=== PATIENT | female | born 1950 | race African-American/Black ===

== ENCOUNTER → 2019-03-12 | Day surgery (SDC) | payer MEDICARE ==
[~2019-03-12] MED LIST: FENTANYL CITRATE/PF 100MCG/2 ML INJ ONE; JANUMET 50-1,01 EACH PO; LINZESS PO; MIDAZOLAM HCL 2 MG/2 ML VIAL ONE; OR PHACO EYE KIT ONE; PREOP PHACO EYE KIT ONE; TOBRAMYCIN/DEXAMETHASONE(OPTH) 3.5 GM TUBE ONE; TRIBENZOR 40-51 EACH PO
--- OUTSIDE RECORDS SUMMARY | 2019-03-12 09:28 | XMS REPORT | CCD ---
Author Author Auto Generated Organization [facility] Address Unknown Phone Unavailable Care Team Providers Care Ash Kier Boiler Name Role Phone [facility] CP Unavailable Jessica Clay CP Unavailable Jay Marcos CP Vanessa Guardado CP [phone] Jaswinder Meehan CP Tonia Crenshaw CP [phone] Anand Sanchez CP Unavailable Shawnee Garcia CP Unavailable Virginia Haas CP [phone] Loc Sanders CP Unavailable Radu Muse CP Unavailable Carolina Fry CP [phone] Venecia Le CP Asiya Gallardo CP Unavailable La Cotto CP Unavailable Candice Stringer CP Unavailable Ronald Griffin CP Unavailable Jl Gamez CP [phone] Casi Santacruz CP Unavailable Ayala Atkinson CP Feliciano Pierre CP Unavailable Jocelyn Vyas CP Unavailable Inés Jalloh CP Unavailable DominickEsteban alvarado CP Unavailable SYSTEM, SYSTEM CP Unavailable Kylah Boss CP Unavailable Biju Cotto CP [phone] Chris Jones CP Unavailable Jose Carlos Faustin CP Unavailable Sarah Beth Yi CP [phone] Tino Pozo CP Brittany Garcia CP [phone] [place], Karen CP Unavailable Geeta Stein CP Unavailable NairAlecia shields CP [phone] Allergies, Adverse Reactions, Alerts Substance Reaction Status NKDA ?? Active Problem List Condition Effective Dates Status Hypertension ?? Active Medications Medication Instructions Start Date End Date Status morphine Sulfate 2 mg, Route: IVP, ONCE, Priority: 05/01/2011 05/01/2011 Completed STAT, Start date: 05/01/11 21:56:00, Stop date: 05/01/11 21:56:00 Flexeril 5 mg, 0.5 tab, Route: PO, Drug 05/01/2011 05/01/2011 Completed form: TAB, ONCE, PRN Spasm, Start date: 05/01/11 21:56:00, Stop date: 05/31/11 21:55:00 hydrALAZINE 10 mg, 0.5 mL, Route: IVP, Drug 05/01/2011 05/01/2011 Completed form: INJ, ONCE, Priority: STAT, Start date: 05/01/11 23:07:00, Stop date: 05/01/11 23:07:00 clonidine 0.2 mg 0.2 mg, 1 tab, PO, Q12H, 60 tab, 05/03/2011 ?? Ordered oral tablet Substitution Allowed, TAB baclofen 10 mg oral 10 mg, 1 tab, PO, TID, 30 tab, 05/03/2011 ?? Ordered tablet Substitution Allowed, TAB metoprolol 50 mg, 1 tab, Route: PO, Drug form: 05/02/2011 05/03/2011 Discontinued ERTAB, BID, Start date: 05/02/11 17:00:00, Duration: 30 day, Stop date: 06/01/11 9:00:00 glimepiride 2 mg, 1 tab, Route: PO, Drug form: 05/02/2011 05/03/2011 Discontinued TAB, BID, Start date: 05/02/11 17:00:00, Duration: 30 day, Stop date: 06/01/11 9:00:00 Lipitor 40 mg, 1 tab, Route: PO, Drug form: 05/02/2011 05/03/2011 Discontinued TAB, Bedtime, Start date: 05/02/11 21:00:00, Duration: 30 day, Stop date: 05/31/11 21:00:00 aspirin 81 mg 81 mg, 1 tab, Route: PO, Drug form: 05/02/2011 05/03/2011 Discontinued tablet, chewable CHEWTAB, Q24H, Start date: 05/02/11 15:00:00, Duration: 30 day, Stop date: 05/31/11 15:00:00 labetalol 20 mg, 4 mL, Route: IVP, Drug form: 05/02/2011 05/03/2011 Discontinued INJ, ONCE, PRN Elevated BP, Start date: 05/02/11 1:53:00, SBP GREATER THAN 200 atropine 0.5 mg, 5 mL, Route: IVP, Drug 05/02/2011 05/03/2011 Discontinued form: INJ, PRN, PRN Bradycardia, Start date: 05/02/11 1:41:00, Duration: 30 day, Stop date: 06/01/11 1:40:00 nitroglycerin 0.4 mg 0.4 mg, 1 tab, Route: SL, Drug 05/02/2011 05/03/2011 Discontinued sublingual tablet form: TAB, Q5Min, PRN Chest Pain, Start date: 05/02/11 1:41:00, Duration: 30 day, Stop date: 06/01/11 1:40:00 Milk of Magnesia 30 ml, Route: PO, Drug Form: SUSP, 05/02/2011 05/02/2011 Completed ONCE, Start date: 05/02/11 13:45:00, Stop date: 05/02/11 13:45:00 Flexeril 5 mg, 0.5 tab, Route: PO, Drug 05/02/2011 05/03/2011 Discontinued form: TAB, TID, PRN Spasm, Start date: 05/02/11 1:53:00, Duration: 30 day, Stop date: 06/01/11 1:52:00 morphine Sulfate 2 mg, 1 mL, Route: IVP, Drug form: 05/02/2011 05/03/2011 Discontinued INJ, Q4H, Priority: STAT, Start date: 05/02/11 1:53:00, Duration: 30 day, Stop date: 06/01/11 0:00:00 clonidine 0.2 mg 0.2 mg, 1 tab, Route: PO, BID, 05/02/2011 05/02/2011 Deleted oral tablet Start date: 05/02/11 9:00:00, Duration: 30 day, Stop date: 05/31/11 17:00:00 aspirin 81 mg Daily, Substitution Allowed 05/01/2011 ?? Ordered tablet, chewable meloxicam 15 mg oral Daily, Substitution Allowed 05/01/2011 ?? Ordered tablet Dextrose 50% Syringe 12.5 gm, 25 mL, Route: IVP, Drug 05/02/2011 05/03/2011 Discontinued Form: INJ, PRN, PRN Blood Glucose Results, Start date: 05/02/11 13:42:00, Duration: 30 day, Stop date: 06/01/11 13:41:00 Dextrose 50% Syringe 25 gm, 50 mL, Route: IVP, Drug 05/02/2011 05/03/2011 Discontinued Form: INJ, PRN, PRN Blood Glucose Results, Start date: 05/02/11 13:42:00, Duration: 30 day, Stop date: 06/01/11 13:41:00 glucagon 1 mg, Route: IM, Drug form: 05/02/2011 05/03/2011 Discontinued PDR/INJ, PRN, PRN Blood Glucose Results, Start date: 05/02/11 13:42:00, Duration: 30 day, Stop date: 06/01/11 13:41:00 insulin aspart 1 unit, 0.01 mL, Route: SUB-Q, Drug 05/02/2011 05/03/2011 Discontinued form: SOLN, Bedtime, PRN Blood Glucose Results, Start date: 05/02/11 13:42:00, Duration: 30 day, Stop date: 06/01/11 13:41:00 insulin aspart 2 unit, 0.02 mL, Route: SUB-Q, Drug 05/02/2011 05/03/2011 Discontinued form: SOLN, Bedtime, PRN Blood Glucose Results, Start date: 05/02/11 13:42:00, Duration: 30 day, Stop date: 06/01/11 13:41:00 insulin aspart 3 unit, 0.03 mL, Route: SUB-Q, Drug 05/02/2011 05/03/2011 Discontinued form: SOLN, Bedtime, PRN Blood Glucose Results, Start date: 05/02/11 13:42:00, Duration: 30 day, Stop date: 06/01/11 13:41:00 insulin aspart 4 unit, 0.04 mL, Route: SUB-Q, Drug 05/02/2011 05/03/2011 Discontinued form: SOLN, Bedtime, PRN Blood Glucose Results, Start date: 05/02/11 13:42:00, Duration: 30 day, Stop date: 06/01/11 13:41:00 insulin aspart 6 unit, 0.06 mL, Route: SUB-Q, Drug 05/02/2011 05/03/2011 Discontinued form: SOLN, TID-Before Meals, PRN Blood Glucose Results, Start date: 05/02/11 13:42:00, Duration: 30 day, Stop date: 06/01/11 13:41:00 insulin aspart 9 unit, 0.09 mL, Route: SUB-Q, Drug 05/02/2011 05/03/2011 Discontinued form: SOLN, TID-Before Meals, PRN Blood Glucose Results, Start date: 05/02/11 13:42:00, Duration: 30 day, Stop date: 06/01/11 13:41:00 insulin aspart 12 unit, 0.12 mL, Route: SUB-Q, 05/02/2011 05/03/2011 Discontinued Drug form: SOLN, TID-Before Meals, PRN Blood Glucose Results, Start date: 05/02/11 13:42:00, Duration: 30 day, Stop date: 06/01/11 13:41:00 insulin aspart 15 unit, 0.15 mL, Route: SUB-Q, 05/02/2011 05/03/2011 Discontinued Drug form: SOLN, TID-Before Meals, PRN Blood Glucose Results, Start date: 05/02/11 13:42:00, Duration: 30 day, Stop date: 06/01/11 13:41:00 insulin aspart 3 unit, 0.03 mL, Route: SUB-Q, Drug 05/02/2011 05/03/2011 Discontinued form: SOLN, TID-Before Meals, PRN Blood Glucose Results, Start date: 05/02/11 13:42:00, Duration: 30 day, Stop date: 06/01/11 13:41:00 baclofen 10 mg, 1 tab, Route: PO, Drug form: 05/02/2011 05/03/2011 Discontinued TAB, TID, Start date: 05/02/11 17:00:00, Duration: 30 day, Stop date: 06/01/11 13:00:00 Lipitor 40 mg oral Bedtime, Substitution Allowed 05/01/2011 05/02/2011 Discontinued tablet Mobic 7.5 mg, 1 tab, Route: PO, Drug 05/03/2011 05/03/2011 Discontinued form: TAB, Daily, Start date: 05/03/11 9:00:00, Duration: 30 day, Stop date: 06/01/11 9:00:00 pneumococcal 0.5 ml, Route: IM, Drug Form: INJ, 05/02/2011 05/02/2011 Completed 23-valent vaccine Start date: 05/02/11 9:00:00, Stop date: 05/02/11 9:00:00 influenza virus 0.5 mL, Route: IM, Drug Form: INJ, 05/02/2011 05/03/2011 Completed vaccine, inactivated Start date: 05/02/11 9:00:00, Stop date: 05/02/11 9:00:00 metoprolol 50 mg 25 mg, 0.5 tab, BID, Substitution 05/01/2011 ?? Ordered oral tablet, Allowed extended release pneumococcal 0.5 ml, Route: IM, Drug Form: INJ, 05/02/2011 05/02/2011 Completed 23-valent vaccine Daily, Start date: 05/02/11 9:00:00, Duration: 1 doses or times, Stop date: 05/02/11 9:00:00 influenza virus 0.5 mL, Route: IM, Drug Form: INJ, 05/02/2011 05/02/2011 Completed vaccine, inactivated Daily, Start date: 05/02/11 9:00:00, Duration: 1 doses or times, Stop date: 05/02/11 9:00:00 labetalol 20 mg, 4 mL, Route: IVP, Drug form: 05/01/2011 05/01/2011 Completed INJ, ONCE, Priority: STAT, Start date: 05/01/11 21:33:00, Stop date: 05/01/11 21:33:00 glimepiride 2 mg BID, Substitution Allowed 05/01/2011 ?? Ordered oral tablet clonidine 0.2 mg 0.2 mg, 1 tab, Route: PO, Drug 05/02/2011 05/03/2011 Discontinued oral tablet form: TAB, Q12H, Start date: 05/02/11 9:00:00, Duration: 30 day, Stop date: 05/31/11 21:00:00 nitroglycerin 0.4 mg, 1 tab, Route: SL, Drug 05/01/2011 05/03/2011 Discontinued form: TAB, Q5Min, PRN Chest Pain, (Hold if SBP <=90 mmHg or if <=100mmHg with symptomatic dizziness), Start date: 05/01/11 21:33:00, Duration: 3 doses or times, Stop date: Limited # of times nitroglycerin 2% 0.5 inch, Route: TOP, Drug Form: 05/01/2011 05/01/2011 Completed ointment OINT, ONCE, STAT, Start date: 05/01/11 21:33:00, Stop date: 05/01/11 21:33:00 aspirin 325 mg 325 mg, 1 tab, Route: PO, Drug 05/01/2011 05/01/2011 Completed tablet form: TAB, ONCE, Priority: STAT, Start date: 05/01/11 21:33:00, Stop date: 05/01/11 21:33:00 Saline Flush 0.9% 5 ml, Route: IVP, Drug Form: INJ, 05/01/2011 05/02/2011 Discontinued PRN, PRN Line Flush, Start date: 05/01/11 21:33:00, Duration: 24 hr, Stop date: 05/02/11 21:32:00 Immunizations Vaccine Date Status influenza virus vaccine, inactivated 05/03/2011 Not Done influenza virus vaccine, inactivated 05/03/2011 Auth (Verified) pneumococcal 23-valent vaccine 05/02/2011 Not Done Vital Signs Most recent to oldest [Reference Range]: 1 2 3 Height 157.48 cm (05/01/2011 20:30:00) ? Temperature Oral [96.4-99.1 DegF] 98.1 DegF (05/03/2011 08:00:00) ?? 98.4 DegF (05/03/2011 04:00:00) ?? 97.4 DegF (05/03/2011 00:00:00) ?? Systolic Blood Pressure [90-140 mmHg] 155 mmHg *HI* (05/03/2011 08:00:00) ?? 130 mmHg (05/03/2011 04:00:00) ?? 147 mmHg *HI* (05/03/2011 00:00:00) ?? Diastolic Blood Pressure [60-90 mmHg] 87 mmHg (05/03/2011 08:00:00) ?? 81 mmHg (05/03/2011 04:00:00) ?? 84 mmHg (05/03/2011 00:00:00) ?? Respiratory Rate [14-20 BRMIN] 18 BRMIN (05/03/2011 08:00:00) ?? 16 BRMIN (05/03/2011 04:00:00) ?? 16 BRMIN (05/03/2011 00:00:00) ?? Peripheral Pulse Rate [60-100 bpm] 63 bpm (05/03/2011 08:00:00) ?? 64 bpm (05/03/2011 04:00:00) ?? 70 bpm (05/03/2011 00:00:00) ?? Weight 100.000 kg (05/01/2011 20:30:00) ? Results BEDSIDE GLUCOSE TESTING Most recent to [Reference Range]: 1 2 3 Gluc POC [place] [65-110 mg/dL] 118 mg/dL 1 *HI* (05/03/2011 07:14:00) ?? 144 mg/dL 2 *HI* (05/02/2011 20:50:00) ?? 151 mg/dL 3 *HI* (05/02/2011 17:01:00) ?? Comment1 Notify RN/MD *NA* (05/02/2011 20:50:00) ?? Notify RN/MD *NA* (05/02/2011 17:01:00) ?? Notify RN/MD *NA* (05/02/2011 12:21:00) ?? 1Interpretive Data: Upper Reportable Limit: 200 mg/dL. 2Interpretive Data: Upper Reportable Limit: 200 mg/dL. 3Interpretive Data: Upper Reportable Limit: 200 mg/dL. CHEMISTRY Most recent to oldest [Reference Range]: 1 2 3 Sodium Lvl [135-145 mEq/L] 143 mEq/L (05/01/2011 22:05:00) ? Potassium Lvl [3.5-5.1 mEq/L] 3.8 mEq/L (05/01/2011 22:05:00) ? Chloride Lvl [95-109 mEq/L] 106 mEq/L (05/01/2011 22:05:00) ? CO2 [24-32 mEq/L] 28 mEq/L (05/01/2011 22:05:00) ? AGAP [10.0-20.0 mEq/L] 12.8 mEq/L (05/01/2011 22:05:00) ? Creatinine Lvl [0.5-1.4 mg/dL] 1.1 mg/dL (05/01/2011 22:05:00) ? BUN [7-22 mg/dL] 9 mg/dL (05/01/2011 22:05:00) ? B/C Ratio [6-25] 8 (05/01/2011 22:05:00) ? Glucose Lvl 96 mg/dL 4 *NA* (05/01/2011 22:05:00) ? Total Protein [6.4-8.4 g/dL] 8.5 g/dL *HI* (05/01/2011 22:05:00) ? Albumin Lvl [3.5-5.0 g/dL] 3.9 g/dL (05/01/2011 22:05:00) ? Globulin [2.0-4.0 g/dL] 4.6 g/dL *HI* (05/01/2011 22:05:00) ? A/G Ratio [0.7-1.6] 0.8 (05/01/2011 22:05:00) ? Calcium Lvl [8.5-10.5 mg/dL] 9.6 mg/dL (05/01/2011 22:05:00) ? ALT [0-65 U/L] 27 U/L (05/01/2011 22:05:00) ? AST [0-37 U/L] 13 U/L (05/01/2011 22:05:00) ? Alk Phos [39-136 U/L] 80 U/L (05/01/2011 22:05:00) ? Bili Total [0.2-1.3 mg/dL] 0.4 mg/dL (05/01/2011 22:05:00) ? Total CK [12-191 U/L] 106 U/L (05/02/2011 10:45:00) ?? 116 U/L (05/02/2011 03:59:00) ?? 147 U/L (05/01/2011 22:05:00) ?? CK MB [0.5-3.6 ng/mL] 1.5 ng/mL (05/01/2011 22:05:00) ? CK MB Index [0.0-2.5] 1.0 (05/01/2011 22:05:00) ? Troponin-I [0.00-0.40 ng/mL] <0.02 ng/mL (05/02/2011 10:45:00) ?? <0.02 ng/mL (05/02/2011 03:59:00) ?? <0.02 ng/mL (05/01/2011 22:05:00) ?? 4Interpretive Data: Reference Ranges : 0 - 7 days : 41 - 90 mg/dL7 days - 150 yrs : 70 - 99 mg/dL (fasting), based on the clinical recommendations of the [place] [employer]. HEMATOLOGY Most recent to oldest [Reference Range]: 1 2 3 WBC [3.7-10.4 K/CMM] 7.0 K/CMM (05/01/2011 22:05:00) ? RBC [4.20-5.40 M/CMM] 4.85 M/CMM (05/01/2011 22:05:00) ? Hgb [12.0-16.0 g/dL] 14.6 g/dL (05/01/2011 22:05:00) ? Hct [36.0-48.0 %] 42.7 % (05/01/2011 22:05:00) ? MCV [81.0-99.0 fL] 87.9 fL (05/01/2011 22:05:00) ? MCH [27.0-31.0 pg] 30.1 pg (05/01/2011 22:05:00) ? MCHC [32.0-36.0 g/dL] 34.2 g/dL (05/01/2011 22:05:00) ? RDW [11.5-14.5 %] 13.0 % (05/01/2011 22:05:00) ? Platelet [133-450 K/CMM] 230 K/CMM (05/01/2011 22:05:00) ? MPV [7.4-10.4 fL] 8.3 fL (05/01/2011 22:05:00) ? Segs [45.0-75.0 %] 54.2 % (05/01/2011 22:05:00) ? Lymphocytes [20.0-40.0 %] 37.3 % (05/01/2011 22:05:00) ? Monocytes [2.0-12.0 %] 7.3 % (05/01/2011 22:05:00) ? Eosinophils [0.0-4.0 %] 0.8 % (05/01/2011 22:05:00) ? Basophils [0.0-1.0 %] 0.4 % (05/01/2011 22:05:00) ? Segs-Bands # [1.5-8.1 K/CMM] 3.8 K/CMM (05/01/2011 22:05:00) ? Lymphocytes # [1.0-5.5 K/CMM] 2.6 K/CMM (05/01/2011 22:05:00) ? Monocytes # [0.0-0.8 K/CMM] 0.5 K/CMM (05/01/2011 22:05:00) ? Eosinophils # [0.0-0.5 K/CMM] 0.1 K/CMM (05/01/2011 22:05:00) ? Basophils # [0.0-0.2 K/CMM] 0.0 K/CMM (05/01/2011 22:05:00) ?
--- OUTSIDE RECORDS SUMMARY | 2019-03-12 09:28 | XMS REPORT | Summary of Care ---
Author Organization Unknown Address Unknown Phone Unavailable Encounter HQ Cinthia_romario(ELISE) [id number] Date(s): 10/02/13 - 10/02/13 [facility] [address] [place], [place] [address] - [facility] Discharge Disposition: Home Physician Attending: Adriane Cunningham Physician Admitting: Adriane Cunningham Physician_Referring: Adriane Cunningham Reason for Visit V76.51 Vital Signs 1 2 3 Most recent to oldest [Reference Range]: 154.94 cm (09/27/13 11:31 AM) Height 98.6 DegF (09/27/13 11:46 AM) Temperature Oral [96.4-99.1 DegF] 127 mmHg (10/02/13 3:15 PM) 119 mmHg (10/02/13 3:00 PM) 92 mmHg (10/02/13 2:42 PM) Systolic Blood Pressure [90-140 mmHg] 68 mmHg (10/02/13 3:15 PM) 54 mmHg *LOW* (10/02/13 3:00 PM) 45 mmHg *LOW* (10/02/13 2:42 PM) Diastolic Blood Pressure [60-90 mmHg] 18 BRMIN (10/02/13 3:15 PM) 18 BRMIN (10/02/13 3:00 PM) 18 BRMIN (10/02/13 2:42 PM) Respiratory Rate [14-20 BRMIN] 77 bpm (09/27/13 11:46 AM) Peripheral Pulse Rate [60-100 bpm] 93.182 kg (09/27/13 11:31 AM) Weight 38.82 m2 (09/27/13 11:31 AM) Body Mass Index Problem List Condition Effective Dates Status Health Status Informant Diabetes Active mellitus(Confirmed) Hemorrhoids(Confirme Active d)1 Hypercholesterolemia Active (Confirmed) Hypertension(Confirm Active Chronic ; ed) SOB (shortness of Resolved breath)(Confirmed)2 1with bleeding 2occasionally-checked my Cardiac MD-wnl Allergies, Adverse Reactions, Alerts Substance Reaction Severity Status NKDA Active Medications chondroitin PO, Daily, 0 Refill(s) Start Date: 09/27/13 Status: Ordered flumazenil 0.2 mg, Route: IVP, PRN, Dosing Weight 93.182, kg, PRN Other -See Comment, Start date: 10/02/13 14:57:00, Duration: 1 doses or times, Stop date: Limited # of ti mes Start Date: 10/02/13 Stop Date: 10/02/13 Status: Discontinued flumazenil 0.1 mg, Route: IVP, Q5Min, Dosing Weight 93.182, kg, PRN Other -See Comment, Sta rt date: 10/02/13 14:57:00, Duration: 30 day, Stop date: 11/01/13 14:56:00 Start Date: 10/02/13 Stop Date: 10/02/13 Status: Discontinued hydrocortisone-pramoxine topical 1%-1% cream with applicator 1 appl, VA, Daily, # 10 gm, 0 Refill(s) Start Date: 09/27/13 Status: Ordered metFORMIN 1000 mg oral tablet 1,000 mg=1 tab, PO, BID, # 60 tab, 0 Refill(s) Start Date: 09/27/13 Status: Ordered metFORMIN 500 mg oral tablet 500 mg=1 tab, PO, BID, # 30 tab, 0 Refill(s) Start Date: 09/27/13 Stop Date: 09/27/13 Status: Completed metoprolol tartrate 100 mg oral tablet 100 mg=1 tab, PO, Daily, # 180 tab, 0 Refill(s) Start Date: 09/27/13 Status: Ordered multivitamin PO, Daily, 0 Refill(s) Start Date: 09/27/13 Status: Ordered naloxone 0.1 mg, Route: IVP, Q2MIN, Dosing Weight 93.182, kg, PRN Narcotic Reversal, Star t date: 10/02/13 14:57:00, Duration: 4 doses or times, Stop date: Limited # of t imes Start Date: 10/02/13 Stop Date: 10/02/13 Status: Discontinued Sodium Chloride 0.9% IV 1000 mL 1,000 mL, Rate: 25 ml/hr, Infuse over: 40 hr, Route: IV, Dosing Weight 93.182 kg , Total Volume: 1,000, Start date: 10/02/13 13:34:00, Duration: 30 day, Stop ramona e: 11/01/13 13:33:00 Start Date: 10/02/13 Stop Date: 10/02/13 Status: Discontinued Tribenzor 40 mg-10 mg-25 mg oral tablet PO, Daily, 0 Refill(s) Start Date: 09/27/13 Status: Ordered Results ELECTROLYTES Most recent to 1 oldest [Reference Range]: Sodium Lvl [135-145 138 mEq/L mEq/L] (09/27/13 12:00 PM) Potassium Lvl 4.5 mEq/L [3.5-5.1 mEq/L] (09/27/13 12:00 PM) Chloride Lvl [95-109 100 mEq/L mEq/L] (09/27/13 12:00 PM) CO2 [24-32 mEq/L] 31 mEq/L (09/27/13 12:00 PM) AGAP [10.0-20.0 11.5 mEq/L mEq/L] (09/27/13 12:00 PM) CHEM PANEL Most recent to 1 oldest [Reference Range]: Creatinine Lvl 1.2 mg/dL [0.5-1.4 mg/dL] (09/27/13 12:00 PM) eGFR 56 mL/min/1.73m2 1 *NA* (09/27/13 12:00 PM) BUN [7-22 mg/dL] 16 mg/dL (09/27/13 12:00 PM) Glucose Lvl [70-99 128 mg/dL 2 mg/dL] *HI* (09/27/13 12:00 PM) Calcium Lvl 9.9 mg/dL [8.5-10.5 mg/dL] (09/27/13 12:00 PM) 1Result Comment: The eGFR is calculated using the CKD-EPI formula. In most young, healthy individuals the eGFR will be >90 mL/min/1.73m2. The eGFR declines with age. An eGFR of 60-89 may be normal in some populations, particularly the elderly, for whom the CKD-EPI formula has not been extensively validated. Use of the eGFR is not recommended in the following populations: Individuals with unstable creatinine concentrations, including patients and those with serious co-morbid conditions. Patients with extremes in muscle mass or diet. The data above are obtained from the National Kidney Disease Education Program ( NKDEP) which additionally recommends that when the eGFR is used in patients with extremes of body mass index for purposes of drug dosing, the eGFR should be mul tiplied by the estimated BMI. 2Interpretive Data: Adult reference range values reflect the clinical guidelines of the [place] [employer]. Medications Administered During Your Visit No data available for this section Immunizations Vaccine Date Refusal Reason influenza virus vaccine, inactivated 05/03/11 pneumococcal 23-valent vaccine 06/26/12 Procedures Procedure Type Body Site Date of Procedure Related Diagnosis Hemorrhoid operation Social History Social History Type Response Smoking Status Never smoker, Exposure to Tobacco Smoke None, Cigarette Smoking Last 365 Days No, Reg Smoking Cessation Counseling Yes
--- OUTSIDE RECORDS SUMMARY | 2019-03-12 09:28 | XMS REPORT | CCD ---
Author Author Auto Generated Organization [facility] Address Unknown Phone Unavailable Care Team Providers Care Educational Guidance Counselor Name Role Phone Enrique Bobo CP Unavailable Allergies, Adverse Reactions, Alerts Substance Reaction Status NKDA Active Problem List Condition Effective Dates Status Hypertension Active Medications Medication Instructions Start Date End Date Status labetalol 20 mg, 4 mL, Route: IVP, Drug form: 04/06/2012 04/06/2012 Discontinued INJ, ONCE, Dosing Weight 95.455, kg, Priority: STAT, Start date: 04/06/12 17:43:00, Stop date: 04/06/12 17:43:00 Saline Flush 0.9% 5 ml, Route: IVP, Drug Form: INJ, 04/06/2012 04/07/2012 Discontinued Dosing Weight 95.455, kg, PRN, PRN Line Flush, Start date: 04/06/12 17:43:00, Duration: 30 day, Stop date: 05/06/12 16:42:00 pneumococcal 0.5 ml, Route: IM, Drug Form: [...] doses or times, Stop date: 05/02/11 9:00:00 Immunizations Vaccine Date Status influenza virus vaccine, inactivated 05/03/2011 Not Done influenza virus vaccine, inactivated 05/03/2011 Auth (Verified) pneumococcal 23-valent vaccine 05/02/2011 Not Done Vital Signs Most recent to oldest [Reference Range]: 1 Height 154.94 cm (04/06/2012 16:56:00) Weight 95.455 kg (04/06/2012 16:56:00) Results CHEMISTRY Most recent to oldest [Reference Range]: 1 Sodium Lvl [135-145 mEq/L] 142 mEq/L (04/06/2012 17:46:00) Potassium Lvl [3.5-5.1 mEq/L] 4.0 mEq/L (04/06/2012 17:46:00) Chloride Lvl [95-109 mEq/L] 106 mEq/L (04/06/2012 17:46:00) CO2 [24-32 mEq/L] 27 mEq/L (04/06/2012 17:46:00) AGAP [10.0-20.0 mEq/L] 13.0 mEq/L (04/06/2012 17:46:00) Creatinine Lvl [0.5-1.4 mg/dL] 1.1 mg/dL (04/06/2012 17:46:00) eGFR 63 mL/min/1.73m2 1 *NA* (04/06/2012 17:46:00) BUN [7-22 mg/dL] 13 mg/dL (04/06/2012 17:46:00) B/C Ratio [6-25] 12 (04/06/2012 17:46:00) Glucose Lvl [70-99 mg/dL] 145 mg/dL 2 *HI* (04/06/2012 17:46:00) Total Protein [6.4-8.4 g/dL] 8.2 g/dL (04/06/2012 17:46:00) Albumin Lvl [3.5-5.0 g/dL] 3.9 g/dL (04/06/2012 17:46:00) Globulin [2.0-4.0 g/dL] 4.3 g/dL *HI* (04/06/2012 17:46:00) A/G Ratio [0.7-1.6] 0.9 (04/06/2012 17:46:00) Calcium Lvl [8.5-10.5 mg/dL] 9.3 mg/dL (04/06/2012:46:00) ALT [0-65 unit/L] 29 unit/L (04/06/2012:46:00) AST [0-37 unit/L] 19 unit/L (04/06/2012:46:00) Alk Phos [39-136 unit/L] 76 unit/L (04/06/2012:46:00) Bili Total [0.2-1.3 mg/dL] 0.4 mg/dL (04/06/2012:46:00) Total CK [12-191 unit/L] 146 unit/L (04/06/2012:46:00) CK MB [0.5-3.6 ng/mL] 1.8 ng/mL (04/06/2012:46:00) CK MB Index [0.0-2.5] 1.2 (04/06/2012:46:00) Troponin-I [0.00-0.40 ng/mL] 0.02 ng/mL (04/06/2012:46:00) 1Result Comment: The eGFR is calculated using [...] values reflect the clinical guidelines of the [place] [employer]. HEMATOLOGY Most recent to oldest [Reference Range]: 1 WBC [3.7-10.4 K/CMM] 6.7 K/CMM (04/06/2012 17:46:00) RBC [4.20-5.40 M/CMM] 4.40 M/CMM (04/06/2012 17:46:00) Hgb [12.0-16.0 g/dL] 13.0 g/dL (04/06/2012 17:46:00) Hct [36.0-48.0 %] 39.2 % (04/06/2012 17:46:00) MCV [81.0-99.0 fL] 89.0 fL (04/06/2012 17:46:00) MCH [27.0-31.0 pg] 29.6 pg (04/06/2012 17:46:00) MCHC [32.0-36.0 g/dL] 33.2 g/dL (04/06/2012 17:46:00) RDW [11.5-14.5 %] 13.5 % (04/06/2012 17:46:00) Platelet [133-450 K/CMM] 269 K/CMM (04/06/2012 17:46:00) MPV [7.4-10.4 fL] 7.7 fL (04/06/2012 17:46:00) Segs [45.0-75.0 %] 51.3 % (04/06/2012 17:46:00) Lymphocytes [20.0-40.0 %] 41.4 % *HI* (04/06/2012 17:46:00) Monocytes [2.0-12.0 %] 5.8 % (04/06/2012 17:46:00) Eosinophils [0.0-4.0 %] 1.1 % (04/06/2012 17:46:00) Basophils [0.0-1.0 %] 0.4 % (04/06/2012 17:46:00) Segs-Bands # [1.5-8.1 K/CMM] 3.4 K/CMM (04/06/2012 17:46:00) Lymphocytes # [1.0-5.5 K/CMM] 2.8 K/CMM (04/06/2012 17:46:00) Monocytes # [0.0-0.8 K/CMM] 0.4 K/CMM (04/06/2012 17:46:00) Eosinophils # [0.0-0.5 K/CMM] 0.1 K/CMM (04/06/2012 17:46:00) Basophils # [0.0-0.2 K/CMM] 0.0 K/CMM (04/06/2012 17:46:00) PT [12.0-14.7 seconds] 12.8 seconds (04/06/2012 17:46:00) INR [0.85-1.17] 0.94 3 (04/06/2012 17:46:00) PTT [22.9-35.8 seconds] 28.8 seconds 4 (04/06/2012 17:46:00) 3Interpretive Data: RECOMMENDED RANGES FOR PROTIME INR: 2.0-3.0 for most medical and surgical thromboembolic states. 2.5-3.5 for artificial heart valves and recurrent embolism. INR SHOULD BE USED ONLY FOR PATIENTS ON STABLE ANTICOAGULANT THERAPY. 4Interpretive Data: Heparin Therapeutic Range: 57 - 92 Seconds
--- OUTSIDE RECORDS SUMMARY | 2019-03-12 09:29 | XMS REPORT | Summary of Care ---
Author Author [facility] Organization [facility] Address Unknown Phone Unavailable Encounter DEMETRICE Cardenas(ELISE) [id number] Date(s): 07/30/18 - 07/30/18 [facility] [address] [place] [address]- [phone] Encounter Diagnosis Unspecified lump in the left breast, upper inner quadrant (Final) - 08/02/18 Discharge Disposition: Home or Self Care Attending Physician: Tino Pozo MD Referring Physician: Tino Pozo MD Vital Signs No data available for this section Problem List Condition Effective Dates Status Health Status Informant Diabetes Active mellitus(Confirmed) Hemorrhoids(Confirme Active d)1 Hypercholesterolemia Active (Confirmed) Hypertension(Confirm Active Chronic ; ed) SOB (shortness of Resolved breath)(Confirmed)2 1with bleeding 2occasionally-checked my Cardiac MD-wnl Allergies, Adverse Reactions, Alerts No Known Medication Allergies Medications No data available for this section Results No data available for this section Immunizations Given and Recorded Vaccine Date Status Refusal Reason diphtheria/pertussis, acel/tetanus adult 06/09/17 Given pneumococcal 23-valent vaccine 06/26/12 Given influenza virus vaccine, inactivated 05/03/11 Given Procedures Procedure Date Related Diagnosis Body Site Status section Completed Hemorrhoid operation Completed Hernia repair Completed Social History Social History Type Response Smoking Status Never smoker; Exposure to Tobacco Smoke None; Cigarette Smoking Last 365 Days No; Reg Smoking Cessation Counseling Yes entered on: 10/08/14 Assessment and Plan No data available for this section
--- OUTSIDE RECORDS SUMMARY | 2019-03-12 09:29 | XMS REPORT | Summary of Care ---
Author Author [facility] Organization [facility] Address Unknown Phone Unavailable Encounter DEMETRICE Cardenas(ELISE) [id number] Date(s): 06/09/17 - 06/09/17 [facility] [address] [place] [address]- [phone] Discharge Diagnosis: Contusion of multiple sites Discharge Diagnosis: Fall from standing Discharge Disposition: Home or Self Care Attending Physician: Marin Wood MD Vital Signs 1 2 3 Most recent to oldest [Reference Range]: 154.94 cm (06/09/17 11:48 AM) Height 98.8 DegF (06/09/17 6:25 PM) 98.8 DegF (06/09/17 11:48 AM) Temperature Oral [96.4-99.1 DegF] 121/63 mmHg (06/09/17 6:25 PM) 145/79 mmHg *HI* (06/09/17 5:13 PM) 146/69 mmHg *HI* (06/09/17 4:17 PM) Blood Pressure [90-140/60-90 mmHg] 20 BRMIN (06/09/17 6:25 PM) 20 BRMIN (06/09/17 5:13 PM) 20 BRMIN (06/09/17 4:17 PM) Respiratory Rate [14-20 BRMIN] 87 bpm (06/09/17 6:25 PM) 87 bpm (06/09/17 5:13 PM) 87 bpm (06/09/17 4:17 PM) Peripheral Pulse Rate [60-100 bpm] 86.364 kg (06/09/17 11:48 AM) Weight 35.98 m2 (06/09/17 11:48 AM) Body Mass Index Problem List Condition Effective Dates Status Health Status Informant Diabetes Active mellitus(Confirmed) Hemorrhoids(Confirme Active d)1 Hypercholesterolemia Active (Confirmed) Hypertension(Confirm Active Chronic ; ed) SOB (shortness of Resolved breath)(Confirmed)2 1with bleeding 2occasionally-checked my Cardiac MD-wnl Allergies, Adverse Reactions, Alerts Substance Reaction Severity Status NKDA Active Medications acetaminophen-hydrocodone 325 mg-10 mg oral tablet 1 tab, Route: PO, Drug Form: TAB, Dosing Weight 86.364, kg, ONCE, STAT, Start da te: 06/09/17 15:27:00 [employer], Stop date: 06/09/17 15:27:00 [employer] WORK[employer] Start Date: 06/09/17 Stop Date: 06/09/17 Status: Completed Tylenol with Codeine #3 oral tablet 1 tab, PO, Q6H, PRN Pain, X 3 day, # 12 tab, 0 Refill(s) Start Date: 06/09/17 Stop Date: 06/12/17 Status: Ordered Results No data available for this section Immunizations Given and Recorded Vaccine Date Status Refusal Reason diphtheria/pertussis, acel/tetanus adult 06/09/17 Given pneumococcal 23-valent vaccine 06/26/12 Given influenza virus vaccine, inactivated 05/03/11 Given Procedures Procedure Date Related Diagnosis Body Site section Hemorrhoid operation Hernia repair Social History Social History Type Response Smoking Status Never smoker; Exposure to Tobacco Smoke None; Cigarette Smoking Last 365 Days No; Reg Smoking Cessation Counseling Yes Assessment and Plan No data available for this section
--- OUTSIDE RECORDS SUMMARY | 2019-03-12 09:29 | XMS REPORT | Summary of Care ---
Author Organization Unknown Address Unknown Phone Unavailable Encounter HQ Theresa(ELISE) [id number] Date(s): 10/08/14 - 10/08/14 [facility] [address] [place] [address]- Discharge Diagnosis: Palpitation Discharge Disposition: Home Physician Attending: Jacy Goncalves MD Vital Signs 1 2 3 Most recent to oldest [Reference Range]: 157.48 cm (10/08/14 10:22 AM) Height 98.5 DegF (10/08/14 4:50 PM) 97.9 DegF (10/08/14 10:22 AM) Temperature Oral [96.4-99.1 DegF] 168/81 mmHg *HI* (10/08/14 4:50 PM) 162/73 mmHg *HI* (10/08/14 2:33 PM) 168/78 mmHg *HI* (10/08/14 1:34 PM) Blood Pressure [90-140/60-90 mmHg] 19 BRMIN (10/08/14 4:50 PM) 19 BRMIN (10/08/14 2:33 PM) 18 BRMIN (10/08/14 1:34 PM) Respiratory Rate [14-20 BRMIN] 90 bpm (10/08/14 10:50 AM) 96 bpm (10/08/14 10:22 AM) Peripheral Pulse Rate [60-100 bpm] 92.273 kg (10/08/14 10:22 AM) Weight 37.21 m2 (10/08/14 10:22 AM) Body Mass Index Problem List Condition Effective Dates Status Health Status Informant Diabetes Active mellitus(Confirmed) Hemorrhoids(Confirme Active d)1 Hypercholesterolemia Active (Confirmed) Hypertension(Confirm Active Chronic ; ed) SOB (shortness of Resolved breath)(Confirmed)2 1with bleeding 2occasionally-checked my Cardiac MD-wnl Allergies, Adverse Reactions, Alerts Substance Reaction Severity Status NKDA Active Medications Saline Flush 0.9% 10 mL, Route: IVP, Drug Form: INJ, Dosing Weight 92.273, kg, PRN, PRN Line Flush , Start date: 10/08/14 11:04:00, Duration: 30 day, Stop date: 11/07/14 11:03:00 Notes: (Same as: BD Posiflush) Start Date: 10/08/14 Stop Date: 10/08/14 Status: Discontinued Sodium Chloride 0.9% (Bolus) IV 250 mL, 250 ml/hr, Infuse Over: 1 Hour, Route: IV, ONCE, Priority: STAT, Dosing Weight 92.273 kg, Start date: 10/08/14 13:12:00, Duration: 1 doses or times, Sto p date: 10/08/14 13:12:00 Start Date: 10/08/14 Stop Date: 10/08/14 Status: Completed Results ELECTROLYTES Most recent to 1 2 oldest [Reference Range]: Sodium Lvl [135-145 137 mEq/L mEq/L] (10/08/14 11:42 AM) Potassium Lvl 4.0 mEq/L [3.5-5.1 mEq/L] (10/08/14 11:42 AM) Chloride Lvl [95-109 99 mEq/L mEq/L] (10/08/14 11:42 AM) CO2 [24-32 mEq/L] 31 mEq/L (10/08/14 11:42 AM) AGAP [10.0-20.0 11.0 mEq/L mEq/L] (10/08/14 11:42 AM) CHEM PANEL Most recent to 1 2 oldest [Reference Range]: Creatinine Lvl 1.5 mg/dL [0.5-1.4 mg/dL] *HI* (10/08/14 11:42 AM) eGFR 42 mL/min/1.73m2 1 *NA* (10/08/14 11:42 AM) BUN [7-22 mg/dL] 23 mg/dL *HI* (10/08/14 11:42 AM) B/C Ratio [6-25] 15 (10/08/14 11:42 AM) Glucose Lvl [70-99 151 mg/dL 2 mg/dL] *HI* (10/08/14 11:42 AM) Total Protein 8.6 g/dL [6.4-8.4 g/dL] *HI* (10/08/14 11:42 AM) Albumin Lvl [3.5-5.0 3.9 g/dL g/dL] (10/08/14 11:42 AM) Globulin [2.0-4.0 4.7 g/dL g/dL] *HI* (10/08/14 1142 AM) A/G Ratio [0.7-1.6] 0.8 (10/08/14 11:42 AM) Calcium Lvl 10.6 mg/dL [8.5-10.5 mg/dL] *HI* (10/08/14 11: AM) Phosphorus [2.5-4.5 4.0 mg/dL mg/dL] (10/08/14 11:42 AM) Magnesium Lvl 1.9 mg/dL [1.8-2.4 mg/dL] (10/08/14 11:42 AM) ALT [0-65 unit/L] 34 unit/L (10/08/14 11:42 AM) AST [0-37 unit/L] 22 unit/L (10/08/14 11:42 AM) Alk Phos [39-136 77 unit/L unit/L] (10/08/14 11:42 AM) Bili Total [0.2-1.3 0.3 mg/dL mg/dL] (10/08/14 11:42 AM) 1Result Comment: The eGFR is calculated using [...] values reflect the clinical guidelines of the [place] [employer]. CARDIAC ENZYMES Most recent to 1 2 oldest [Reference Range]: Total CK [12-191 209 unit/L 239 unit/L unit/L] *HI* *HI* (10/08/14 2:32 PM) (10/08/14 11:42 AM) CK MB [0.5-3.6 3.5 ng/mL 3.9 ng/mL ng/mL] (10/08/14 2:32 PM) *HI* (10/08/14 11:42 AM) CK MB Index 1.7 1.6 [0.0-2.5] (10/08/14 2:32 PM) (10/08/14 11:42 AM) Troponin-I 0.10 ng/mL 0.10 ng/mL [0.00-0.40 ng/mL] (10/08/14 2:32 PM) (10/08/14 11:42 AM) BNP [<=100 pg/mL] 25 pg/mL 3 (10/08/14 11:42 AM) 3Interpretive Data: Elevated results are in line with increasing severity of congestive heart failure. Minor elevations between 100 and 300 may be seen with Myocardial Ischemia, Sodium retaining drugs, and compensated/treated heart failure. URINE AND STOOL Most recent to 1 2 oldest [Reference Range]: UA Turbidity [Clear] Clear (10/08/14 12:18 PM) UA Color Ltyellow *NA* (10/08/14 12:18 PM) UA pH [5.0-8.0] 5.0 (10/08/14 12:18 PM) UA Spec Grav 1.008 [<=1.030] (10/08/14 12:18 PM) UA Glucose [Negative Negative mg/dL mg/dL] *NA* (10/08/14 12:18 PM) UA Blood [Negative] Negative (10/08/14 12:18 PM) UA Ketones [Negative Negative mg/dL mg/dL] *NA* (10/08/14 12:18 PM) UA Protein [Negative Negative mg/dL mg/dL] (10/08/14 12:18 PM) UA Urobilinogen <=1.0 mg/dL [0.1-1.0 mg/dL] *NA* (10/08/14 12:18 PM) UA Bili [Negative] Negative *NA* (10/08/14 12:18 PM) UA Leuk Est Negative [Negative] (10/08/14 12:18 PM) UA Nitrite Negative [Negative] (10/08/14 12:18 PM) UA WBC [0-5 /HPF] <1 /HPF (10/08/14 12:18 PM) UA RBC [0-2 /HPF] 3 /HPF *HI* (10/08/14 12:18 PM) UA Sq Epi [Few /LPF] Occasional /LPF *NA* (10/08/14 12:18 PM) HEMATOLOGY Most recent to 1 2 oldest [Reference Range]: WBC [3.7-10.4 K/CMM] 7.2 K/CMM (10/08/14 11:42 AM) RBC [4.20-5.40 4.91 M/CMM M/CMM] (10/08/14 11:42 AM) Hgb [12.0-16.0 g/dL] 14.7 g/dL (10/08/14 11:42 AM) Hct [36.0-48.0 %] 43.5 % (10/08/14 11:42 AM) MCV [80.0-98.0 fL] 88.7 fL (10/08/14 11:42 AM) MCH [27.0-31.0 pg] 30.0 pg (10/08/14 11:42 AM) MCHC [32.0-36.0 33.8 g/dL g/dL] (10/08/14 11:42 AM) RDW [11.5-14.5 %] 13.6 % (10/08/14 11:42 AM) Platelet [133-450 268 K/CMM K/CMM] (10/08/14 11:42 AM) MPV [7.4-10.4 fL] 8.5 fL (10/08/14 11:42 AM) Segs [45.0-75.0 %] 48.7 % (10/08/14 11:42 AM) Lymphocytes 36.8 % [20.0-40.0 %] (10/08/14 11:42 AM) Monocytes [2.0-12.0 12.5 % %] *HI* (10/08/14 11:42 AM) Eosinophils [0.0-4.0 1.1 % %] (10/08/14 11:42 AM) Basophils [0.0-1.0 0.9 % %] (10/08/14 11:42 AM) Segs-Bands # 3.5 K/CMM [1.5-8.1 K/CMM] (10/08/14 11:42 AM) Lymphocytes # 2.7 K/CMM [1.0-5.5 K/CMM] (10/08/14 11:42 AM) Monocytes # [0.0-0.8 0.9 K/CMM K/CMM] *HI* (10/08/14 11:42 AM) Eosinophils # 0.1 K/CMM [0.0-0.5 K/CMM] (10/08/14 11:42 AM) Basophils # [0.0-0.2 0.1 K/CMM K/CMM] (10/08/14 11:42 AM) PT [12.0-14.7 12.4 seconds seconds] (10/08/14 11:42 AM) INR [0.85-1.17] 0.93 4 (10/08/14 11:42 AM) PTT [22.9-35.8 29.9 seconds 5 seconds] (10/08/14 11:42 AM) 4Interpretive Data: RECOMMENDED RANGES FOR PROTIME INR: 2.0-3.0 for most medical and surgical thromboembolic states. 2.5-3.5 for artificial heart valves and recurrent embolism. INR SHOULD BE USED ONLY FOR PATIENTS ON STABLE ANTICOAGULANT THERAPY. 5Interpretive Data: Heparin Therapeutic Range: 57 - 92 Seconds Immunizations Vaccine Date Refusal Reason influenza virus vaccine, inactivated 05/03/11 pneumococcal 23-valent vaccine 06/26/12 Procedures Procedure Date Related Diagnosis Body Site section Hemorrhoid operation Hernia repair Social History Social History Type Response Smoking Status Never smoker; Exposure to Tobacco Smoke None; Cigarette Smoking Last 365 Days No; Reg Smoking Cessation Counseling Yes Assessment and Plan No data available for this section
--- OUTSIDE RECORDS SUMMARY | 2019-03-12 09:29 | XMS REPORT | Summary of Care ---
Author Author [facility] Organization [facility] Address Unknown Phone Unavailable Encounter HQ Theresa(FIN) [id number] Date(s): 07/17/18 - 07/17/18 [facility] [address] [place] [address]- Encounter Diagnosis Encounter for screening mammogram for malignant neoplasm of breast (Final) - 07/18/18 Discharge Disposition: Home or Self Care Attending [...]
--- OUTSIDE RECORDS SUMMARY | 2019-03-12 09:29 | XMS REPORT | Summary of Care ---
Author Author [facility] Organization [facility] Address Unknown Phone Unavailable Encounter HQ Theresa(FIN) [id number] Date(s): 07/17/18 - 07/17/18 [facility] [address] [place] [address]- [phone] Encounter Diagnosis Encounter for screening mammogram for malignant neoplasm of breast (Final) - Discharge Disposition: Home or Self Care Attending [...] Substance Reaction Severity Status NKDA Active Medications No data available for this section [...]
--- OUTSIDE RECORDS SUMMARY | 2019-03-12 09:29 | XMS REPORT | Summary of Care ---
Author Author [facility] Organization [facility] Address Unknown Phone Unavailable Encounter DEMETRICE Cardenas(ELISE) [id number] Date(s): 07/30/18 - 07/30/18 [facility] [address] [place] [address]- [phone] Discharge Disposition: Home or Self Care Attending [...]
--- OUTSIDE RECORDS SUMMARY | 2019-03-12 09:29 | XMS REPORT | Summary of Care ---
Author Author [facility] Organization [facility] Address Unknown Phone Unavailable Encounter HQ Theresa(FIN) [id number] Date(s): 07/05/17 - 07/05/17 [facility] [address] [place] [address]- Encounter Diagnosis Pain in left wrist (Final) - 08/02/17 Discharge Disposition: Home or Self Care Attending Physician: Tino Pozo MD Admitting Physician: Tino Pozo MD Vital Signs No [...]
[2019-03-12 13:10] VITALS: BP 127/64
--- NOTE | 2019-03-15 01:21 | Operative Report ---
DATE OF PROCEDURE: 03/12/2019 SURGEON: Jeff Yan MD PREOPERATIVE DIAGNOSIS: Dense visually significant cataract of the left eye. POSTOPERATIVE DIAGNOSIS: Dense visually significant cataract of the left eye. PROCEDURES: 1. Phacoemulsification of dense nucleus without intraocular lens. 2. Anterior vitrectomy, left eye. COMPLICATIONS: Zonular dehiscence and retained nucleus in the vitreous cavity. ANESTHESIA: MAC. DESCRIPTION OF PROCEDURE: The patient was taken to the operating room, where they had tetracaine drops placed in the left eye. The patient's eye was prepped and draped in the usual sterile ophthalmic way. A lid speculum was placed in the eye and sideport incision was made. A 14 mL of 1% lidocaine preserve free was injected into the anterior chamber. Viscoelastic was placed in the anterior chamber. Keratome was used to make a temporal clear corneal incision. A cystome and an Utrata forceps were used to create an anterior capsulorrhexis without any complications. Hydrodissection and hydrodelineation were then performed. A good fluid wave was noted. Phacoemulsification probe was placed in the eye and a nucleus was partially phacoemulsified. During this time, there was significant Zonular dehiscence and the nucleus began with the bag to descend into the vitreous cavity. Due to this, I decided not to advance the probe to remove the nucleus and decided to perform an anterior vitrectomy. The anterior vitrectomy handpiece was used to remove the vitreous that had been extending up into the anterior chamber. Once this was done, one 10-0 nylon suture was used to secure the wound. The incision and sideport incision were Bradley negative and there was no evidence of BSS, it was Bradley negative. The wound was water tight. The patient was taken to the recovery room in good condition and the condition was explained in detail to the person who brought her. The patient was seen in my office tomorrow and told to call my office if any pain or discomfort in the evening. I spoke also with . Dr. Panda Haas about the case and he will be seeing the patient on to evaluate for possible vitrectomy and secondary IOL. Jeff Yan MD SES/MODL /[id number]
== END | disposition home or self-care (01) ==
LOC: OR 09:25
PROVIDERS: ATTEND Ophthalmology
DX: H25.12 Age-related nuclear cataract, left eye (principal); H59.88 Other intraoperative complications of eye and adnexa, not elsewhere classified; H25.89 Other age-related cataract; K85.90 Acute pancreatitis without necrosis or infection, unspecified; E78.5 Hyperlipidemia, unspecified; E11.9 Type 2 diabetes mellitus without complications; I10 Essential (primary) hypertension; M17.12 Unilateral primary osteoarthritis, left knee; K59.02 Outlet dysfunction constipation; Z79.84 Long term (current) use of oral hypoglycemic drugs; Z68.35 Body mass index [BMI] 35.0-35.9, adult
CPT/HCPCS: 36415; 66850; 67005; 82948; J2250; J3010